=== PATIENT | female | born 1960 | race Caucasian/White ===

== ENCOUNTER 2018-12-11 13:50 | Emergency (ER) | payer BC ==
[2018-12-11 14:38] VITALS: BP 111/68
--- NOTE | 2018-12-11 14:43 | UC ---
Lower Extremity/Ankle HPI - HPI Summary HPI Summary: 58 y.o. female who was sitting with her legs crossed this morning and when she got up, she did not realize her foot had fallen asleep and she rolled her right ankle. - History of Current Complaint Chief Complaint: UCLowerExtremity Stated Complaint: RIGHT ANKLE PAIN Time Seen by Provider: 12/11/18 14:43 Hx Obtained From: Patient Hx Last Menstrual Period: D&C ?: No Onset/Duration: Sudden Onset Severity Initially: Mild Severity Currently: Mild Pain Intensity: 9 Aggravating Factor(s): Ambulation Alleviating Factor(s): Rest Able to Bear Weight: Yes - Allergies/Home Medications Allergies/Adverse Reactions: Allergies Allergy/AdvReac Type Severity Reaction Status Date / Time IVP Dye Allergy Swelling Uncoded 12/11/18 14:38 Home Medications: Home Medications Citalopram TAB* [CeleXA TAB*] 20 mg PO DAILY 12/11/18 [History Confirmed ] Gabapentin CAP(*) [Neurontin 300 CAP(*)] 600 mg PO TID 12/11/18 [History Confirmed 12/11/18] Hydrochloroquin 12/11/18 [History] PMH/Surg Hx/FS Hx/Imm Hx Previously Healthy: Yes Endocrine History: Thyroid Disease Psychological History: Depression - Surgical History Surgical History: Yes Surgery Procedure, Year, and Place: D&C, 2004. Left Knee Arthroscopy for Meniscus, 2004 2005. Right Foot Bunionectomy, 2003. Tubal Ligation, 1984. LEFT BREAST LUMP REMOVED 1997 - Family History Known Family History: Positive: Non-Contributory - Social History Occupation: Employed Full-time Alcohol Use: None Substance Use Type: None Smoking Status (MU): Former Smoker Type: Cigarettes Amount Used/How Often: <1/2 PPD Length of Time of Smoking/Using Tobacco: 29 Years Have You Smoked in the Last Year: Yes When Did the Patient Quit Smoking/Using Tobacco: 2014 Household Exposure Type: Cigarettes - Immunization History Most Recent Influenza Vaccination: Not the 2013/2014 Season Review of Systems All Other Systems Reviewed And Are Negative: Yes Motor: Positive: Negative Neurovascular: Positive: Negative Musculoskeletal: Positive: Other: - swelling and mild bruise to right ankle. Neurological: Positive: Negative Is Patient Immunocompromised?: No Physical Exam Triage Information Reviewed: Yes Appearance: Well-Appearing, No Pain Distress, Well-Nourished Vital Signs: Initial Vital Signs Temp 98.6 F 12/11/18 14:29 Pulse 63 12/11/18 14:29 Resp 18 12/11/18 14:29 BP 111/68 12/11/18 14:29 Pulse Ox 100 12/11/18 14:29 Vital Signs Reviewed: Yes Musculoskeletal: Positive: Strength Intact, ROM Intact, Other: - Mild swelling and minimal bruise to right ankle, good periph pulses, neurosensation, cap refill, [place]'s intact Neurological: Positive: Alert, Muscle Tone Normal Psychological Exam: Normal Skin Exam: Normal Lower Extremity Course/Dx - Course Course Of Treatment: Pt comfortable here, X-Ray negative, Anam bandage applied. - Differential Dx/Diagnosis Provider Diagnosis: Right ankle sprain Discharge - Sign-Out/Discharge Documenting (check all that apply): Patient Departure All imaging exams completed and their final reports reviewed: Yes - Discharge Plan Condition: Fair Disposition: HOME Patient Education Materials: Ankle Sprain (DC) Forms: *Work Release Referrals: Belen Harper MD [Medical Doctor] - Dora Christian NP [Primary Care Provider] - Additional Instructions: Elevate and apply ice intermittently over the next 1-2 days. Follow up with the orthopedist in 3-4 days if no improvement. - Billing Disposition and Condition Condition: FAIR Disposition: Home
== END 2018-12-11 15:20 | disposition home or self-care (01) ==
LOC: UCCORT 13:50
DX: S93.401A Sprain of unspecified ligament of right ankle, initial encounter (principal); X58.XXXA Exposure to other specified factors, initial encounter; E07.9 Disorder of thyroid, unspecified; Z79.899 Other long term (current) drug therapy; Z87.891 Personal history of nicotine dependence
CPT/HCPCS: 99212; G0463

== ENCOUNTER 2019-07-08 13:26 | Emergency (ER) | payer BC ==
[2019-07-08 14:30] VITALS: BP 132/74
[2019-07-08] MEDS ORDERED: Ondansetron ODT TAB* 4 MG PO ONE (14:59)
[2019-07-08] MEDS ORDERED: Ibuprofen TAB* 600 MG PO ONE (14:59)
[2019-07-08] MEDS ORDERED: Acetaminophen TAB* 325 MG PO ONE (15:00)
--- NOTE | 2019-07-08 15:00 | UC ---
FLU HPI - HPI Summary HPI Summary: 58-year-old woman comes in with a chief complaint of influenza-like symptoms that started 3 days ago. She has generalized bodyaches fevers chills and fatigue runny nose cough. Tries [id number] medicines which doesn't help. - History of Current Complaint Chief Complaint: UCRespiratory Stated Complaint: SINUS COUGH CONGESTION Time Seen by Provider: 07/08/19 14:54 Hx Last Menstrual Period: D&C Pain Intensity: 10 - Allergy/Home Medications Allergies/Adverse Reactions: Allergies Allergy/AdvReac Type Severity Reaction Status Date / Time IVP Dye Allergy Swelling Uncoded 07/08/19 14:17 Home Medications: Home Medications Escitalopram * [Lexapro *] 20 mg PO DAILY 07/08/19 [History Confirmed 07/08/19] Gabapentin CAP(*) [Neurontin 300 CAP(*)] 300 mg PO BID 07/08/19 [History Confirmed 07/08/19] Lactobacillus Acidophilus [Freeze Dried Acidophilus] 1 cap PO DAILY 07/08/19 [ History Confirmed 07/08/19] Lansoprazole 30 mg PO DAILY 07/08/19 [History Confirmed 07/08/19] Levothyroxine TAB* [Synthroid TAB*] 112 mcg PO DAILY 07/08/19 [History Confirmed 07/08/19] Meloxicam [Mobic] 15 mg PO DAILY 07/08/19 [History Confirmed 07/08/19] Venlafaxine HCl 75 mg PO DAILY 07/08/19 [History Confirmed 07/08/19] hydrOXYzine HCL TAB* [Atarax 25 MG TAB*] 0.5 tab PO TID PRN 07/08/19 [History Confirmed 07/08/19] PMH/Surg Hx/FS Hx/Imm Hx Previously Healthy: Yes Endocrine History: Hypothyroidism GI/ History: Gastroesophageal Reflux - Surgical History Surgical History: Yes Surgery Procedure, Year, and Place: D&C, 2004. Left Knee Arthroscopy for Meniscus, 2004 2005. Right Foot Bunionectomy, 2003,2018. Tubal Ligation, 1984. LEFT BREAST LUMP REMOVED 1997 - Family History Known Family History: Positive: Non-Contributory - Social History Alcohol Use: None Substance Use Type: None Smoking Status (MU): Former Smoker Type: Cigarettes Amount Used/How Often: <1/2 PPD Length of Time of Smoking/Using Tobacco: 29 Years Have You Smoked in the Last Year: Yes When Did the Patient Quit Smoking/Using Tobacco: 2015 Household Exposure Type: Cigarettes - Immunization History Most Recent Influenza Vaccination: Not the Season Review of Systems All Other Systems Reviewed And Are Negative: Yes Constitutional: Positive: Fever, Chills, Fatigue, Other - SEE HPI Skin: Positive: Negative Eyes: Positive: Negative ENT: Positive: Sore Throat - MILD, Nasal Discharge, Sinus Congestion Respiratory: Positive: Cough Cardiovascular: Positive: Negative Gastrointestinal: Positive: Negative Motor: Positive: Negative Neurovascular: Positive: Negative Musculoskeletal: Positive: Myalgia Neurological: Positive: Negative Psychological: Positive: Negative Is Patient Immunocompromised?: No Physical Exam Triage Information Reviewed: Yes Appearance: Well-Nourished, Ill-Appearing - MILD Vital Signs: Initial Vital Signs Temp 98.2 F 07/08/19 14:21 Pulse 74 07/08/19 14:21 Resp 20 07/08/19 14:21 BP 132/74 07/08/19 14:21 Pulse Ox 100 07/08/19 14:21 Vital Signs Reviewed: Yes Eye Exam: Normal Eyes: Positive: Conjunctiva Clear ENT: Positive: Pharynx normal, Nasal congestion, TMs normal Neck: Positive: Supple Respiratory: Positive: Lungs clear, Normal breath sounds, No respiratory distress Cardiovascular: Positive: RRR Musculoskeletal: Positive: Strength Intact, ROM Intact Neurological: Positive: Alert, Muscle Tone Normal Psychological: Positive: Normal Response To Family, Age Appropriate Behavior Skin Exam: Normal Flu Course/Dx - Differential Dx/Diagnosis Provider Diagnosis: Influenza Discharge ED - Sign-Out/Discharge Documenting (check all that apply): Patient Departure All imaging exams completed and their final reports reviewed: No Studies - Discharge Plan Condition: Stable Disposition: HOME Prescriptions: Ondansetron ODT TAB* [Zofran 4 MG Odt TAB*] 4 mg PO Q6H PRN #10 tab.odt PRN Reason: Nausea/Vomiting Oseltamivir CAP* [Tamiflu CAP*] 75 mg PO BID #10 cap Patient Education Materials: Influenza (ED) Forms: *Work Release Referrals: Dora Christian NP [Primary Care Provider] - Additional Instructions: FOLLOW UP WITH YOUR DOCTOR IF NOT COMPLETELY IMPROVED. GET REEVALUATED SOONER IF NOT IMPROVING OR WORSE OR ANY QUESTIONS OR CONCERNS. - Billing Disposition and Condition Condition: STABLE Disposition: Home
[2019-07-08 15:24] LABS: Influenza B Molecular POSITIVE (Negative)
== END 2019-07-08 15:42 | disposition home or self-care (01) ==
LOC: UCCORT 13:26
DX: J11.1 Influenza due to unidentified influenza virus with other respiratory manifestations (principal); Z91.041 Radiographic dye allergy status; E03.9 Hypothyroidism, unspecified; Z79.890 Hormone replacement therapy; K21.9 Gastro-esophageal reflux disease without esophagitis; Z79.899 Other long term (current) drug therapy; Z87.891 Personal history of nicotine dependence
CPT/HCPCS: 99212; A9270-GY; G0463

== ENCOUNTER 2019-08-08 15:38 | Emergency (ER) | payer BC ==
[2019-08-08 17:39] VITALS: BP 127/70
[2019-08-08] MEDS ORDERED: NS 0.9% 1000 ML** 1,000 ML IV ONE (18:02)
[2019-08-08] MEDS ORDERED: Ketorolac INJ* 30 MG/ML 1 ML VIAL IV PUSH ONE (18:02)
[2019-08-08] MEDS ORDERED: Metoclopramide IV* 5 MG/ML 2 ML VIAL IV SLOW PU ONE (18:03)
--- NOTE | 2019-08-08 18:06 | UC ---
Headache HPI - HPI Summary HPI Summary: 58-year-old woman comes in with a chief complaint of neck pain and headache. Started several days ago. Patient reports she's had this Headache before and she is the when she has neck pain and gives her headache. She did say that the pain started when she was extending her neck looking up which is a mechanism that started these Headaches in the past. She does get intermittent arm tingling. She does not have that now. She took an old Percocet at home said that did not help. In the past patient's been on methadone through a pain clinic for her pain. She's not on methadone now. She reports that IV fluids and IV Reglan and IV Toradol have helped some in the past with these Headaches. Light does bother her eyes. Besides the intermittent arm tingling she has no focal neurologic deficits. Patient has had some nausea today when the headache got worse. - History Of Current Complaint Chief Complaint: UCHeadache Stated Complaint: HEADACHE Time Seen by Provider: 08/08/19 17:50 Hx Last Menstrual Period: D&C Pain Intensity: 9 - Allergies/Home Medications Allergies/Adverse Reactions: Allergies Allergy/AdvReac Type Severity Reaction Status Date / Time IVP Dye Allergy Swelling Uncoded 08/08/19 17:40 PMH/Surg Hx/FS Hx/Imm Hx Previously Healthy: Yes - chronic neck pain. Endocrine History: Hypothyroidism GI/ History: Gastroesophageal Reflux Neurological History: Other - headaches - Surgical History Surgical History: Yes Surgery Procedure, Year, and Place: D&C, 2004. Left Knee Arthroscopy for Meniscus, 2004 2005. Right Foot Bunionectomy, 2003,2019. Tubal Ligation, 1984. LEFT BREAST LUMP REMOVED 1997 - Family History Known Family History: Positive: Non-Contributory - Social History Alcohol Use: None Substance Use Type: None Smoking Status (MU): Former Smoker Type: Cigarettes Amount Used/How Often: <1/2 PPD Length of Time of Smoking/Using Tobacco: 29 Years Have You Smoked in the Last Year: Yes When Did the Patient Quit Smoking/Using Tobacco: 2014 Household Exposure Type: Cigarettes - Immunization History Most Recent Influenza Vaccination: Not the 2013/2014 Season Review of Systems All Other Systems Reviewed And Are Negative: Yes Constitutional: Positive: Negative Skin: Positive: Negative Eyes: Positive: Photophobia ENT: Positive: Negative Respiratory: Positive: Negative Cardiovascular: Positive: Negative Gastrointestinal: Positive: Nausea Motor: Positive: Negative Neurovascular: Positive: Other - see hpi Musculoskeletal: Positive: Other: - see hpi Neurological: Positive: Headache, Other - see hpi Psychological: Positive: Negative Is Patient Immunocompromised?: No Physical Exam Triage Information Reviewed: Yes Appearance: Well-Appearing, Well-Nourished, Pain Distress - mild Vital Signs: Initial Vital Signs Temp 99.1 F 08/08/19 17:33 Pulse 72 08/08/19 17:33 Resp 18 08/08/19 17:33 BP 127/70 08/08/19 17:33 Pulse Ox 99 08/08/19 17:33 Vital Signs Reviewed: Yes Eyes: Positive: Conjunctiva Clear Neck: Positive: Other: - Mild tenderness to palpation on the midline and just to the right of the midline in the paraspinous muscles of the neck. Respiratory: Positive: Lungs clear, Normal breath sounds, No respiratory distress Cardiovascular: Positive: RRR Musculoskeletal: Positive: Strength Intact, ROM Intact, Other: - Normal bilateral radial pulses normal capillary refill on the arms normal sensation and range of motion of the arms and strength. Neurological: Positive: Alert, Muscle Tone Normal, Other: - No focal neurologic deficit Psychological: Positive: Age Appropriate Behavior Skin Exam: Normal Headache Course/Dx - Course Course Of Treatment: In clinic patient was given 1 L of normal saline IV and Reglan 10 mg IV and Toradol 30 mg IV with improvement in her headache and neck pain. Patient reports that in the past she has taken Percocet to help with these headaches and I prescribed a total number of 10 to be used as needed. Patient's to follow -up with her primary care doctor. If she is worse she should go to the emergency department. - Differential Dx/Diagnosis Provider Diagnosis: Headache, Neck pain Discharge ED - Sign-Out/Discharge Documenting (check all that apply): Patient Departure All imaging exams completed and their final reports reviewed: No Studies - Discharge Plan Condition: Stable Disposition: HOME Prescriptions: oxyCODONE/Acetamin 5/325 MG* [Percocet 5/325 TAB*] 1 tab PO Q4H PRN #10 tab MDD 6 PRN Reason: Pain - Severe Patient Education Materials: Acute Headache (ED), Neck Pain (ED) Referrals: Dora Christian NP [Primary Care Provider] - Additional Instructions: FOLLOW UP WITH YOUR DOCTOR. GO TO THE EMERGENCY DEPARTMENT IF NOT IMPROVING OR WORSE; PAIN, WEAKNESS, NUMBNESS OR ANY QUESTIONS OR CONCERNS. - Billing Disposition and Condition Condition: STABLE Disposition: Home
== END 2019-08-08 19:12 | disposition home or self-care (01) ==
LOC: UCCORT 15:38
DX: M54.2 Cervicalgia (principal); R51 Headache; E03.9 Hypothyroidism, unspecified; H53.149 Visual discomfort, unspecified; R11.0 Nausea; Z91.041 Radiographic dye allergy status; Z87.891 Personal history of nicotine dependence
CPT/HCPCS: 96360; 96374; 96375; 99212; G0463; J1885; J2765